=== PATIENT | female | born 1950 | race Caucasian/White ===

== ENCOUNTER → 2021-11-05 14:14 | Outpatient (CLI) | payer MEDICARE, OTHER, SELFPAY ==
--- NOTE | ~2021-11-05 | XR_ITS ---
EXAMINATION: XR chest 2V EXAM DATE: 11/05/2021 14:40 INDICATION: Persistent asthma. TECHNIQUE: Frontal and lateral projections of the chest obtained and reviewed. Comparison is made to prior examination from 10/06/2016. FINDINGS: The lungs are clear. There are no pleural effusions. The cardiomediastinal silhouette is within normal limits. There is no pneumothorax suspected. There is an old left 6th rib fracture pos teriorly. IMPRESSION: No acute cardiopulmonary findings. Reviewed, dictated and finalized at location A. T [employer]
== END ==
PROVIDERS: PCP Nurse Practitioner Family; Visit Provider Nurse Practitioner Family
DX: J45.40 Moderate persistent asthma, uncomplicated (principal)
CPT/HCPCS: 71046